=== PATIENT | female | born 1990 | race Caucasian/White ===

== ENCOUNTER 2023-11-13 17:05 | Emergency (ER) | payer OTHER ==
[~2023-11-13] VITALS: Ht 160 cm; Wt 125.0 kg
[~2023-11-13 17:05] MED LIST: LORTAB 5/500 501 TAB PO; MACROBID 1100 MG/CAP; MONONESSA 35 MC1 TA1 PO; NO HOME MEDICATIONS; PRENATAL1 TA2; [UNRECOGNIZED DRUG - OTHER]
[2023-11-13 17:12] VITALS: TEMP 98.4
[2023-11-13] MEDS ORDERED: NORCO 325 MG-51 TAB PO (17:41)
[2023-11-13] MEDS ORDERED: Home HYDROcodone/Acetaminophen 5/325 MG #4 TABS/PACK PO ONE (17:45)
[2023-11-13 18:05] VITALS: BP 120/77; PULSE 80
== END 2023-11-13 18:05 | disposition home or self-care (01) ==
LOC: COL.ER 17:05
DX: L03.114 Cellulitis of left upper limb (principal); T80.89XA Other complications following infusion, transfusion and therapeutic injection, initial encounter

== ENCOUNTER → 2023-11-14 | Outpatient (CLI) | payer OTHER ==
[~2023-11-14] MED LIST changes: +NORCO 325 MG-51 TAB PO
== END ==
LOC: COL.RAD 05:57
DX: I80.8 Phlebitis and thrombophlebitis of other sites (principal); L03.90 Cellulitis, unspecified

== ENCOUNTER 2024-01-16 16:11 | Emergency (ER) | payer OTHER ==
[~2024-01-16] VITALS: Ht 160 cm; Wt 120.5 kg
[2024-01-16 16:17] VITALS: TEMP 97.8
[2024-01-16 16:59] LABS: BASO % 0.5 % (0.0-2.0); EOS # 0.1 K/mm3 (0.0-0.7); EOS % 1.4 % (0.0-4.0); GRAN % 62.5 % (42.2-75.2); HEMATOCRIT 38.8 % (37.0-47.0); HEMOGLOBIN 11.8 g/dl (12.5-16.0); LYMPH # 1.8 K/mm3 (1.2-3.4); LYMPH % 28.4 % (20.0-51.0); MEAN CELL VOLUME 81 fl (80.0-100.0); MEAN CORPUSCULAR HEMOGLOBIN 25 pg (27-31); MEAN CORPUSCULAR HGB CONC 30 g/dl (33.0-37.0); MEAN PLATELET VOLUME 10.7 fl (7.4-10.4); MONO # 0.5 K/mm3 (0.1-0.6); PLATELET COUNT 238 K/mm3 (130-400); RED BLOOD COUNT 4.78 M/mm3 (4.10-5.30); REDCELL DISTRIBUTION WIDTH-CV 15.4 % (11.5-14.5)
[2024-01-16] MEDS ORDERED: Ondansetron 4 MG/2 ML VIAL IV ONE (17:00)
[2024-01-16] MEDS ORDERED: Iohexol 300 - 100 ML VIAL IV ONE (17:01)
[2024-01-16] MEDS ORDERED: NS 100 ML IV SCH (17:01)
[2024-01-16 17:30] LABS: BILIRUBIN,TOTAL 0.2 mg/dL (0.2-1.2); CALCIUM 8.9 mg/dL (8.4-10.2); CREATININE, serum 0.82 mg/dL (0.57-1.11); MAGNESIUM 1.9 mg/dL (1.6-2.6); POTASSIUM 3.6 mEq/L (3.5-4.5); TOTAL PROTEIN 6.8 g/dl (6.2-8.1)
[2024-01-16 19:41] LABS: COLLECTION METHOD CLEAN CATCH
[2024-01-16 19:44] LABS: URINE APPEARANCE CLEAR (CLEAR/HAZY); URINE BLOOD NEGATIVE (NEGATIVE); URINE COLOR YELLOW (YELLOW); URINE GLUCOSE NEGATIVE (NEGATIVE); URINE KETONE NEGATIVE (NEGATIVE); URINE NITRATE NEGATIVE (NEGATIVE); URINE PROTEIN(semi-quant) NEGATIVE (NEGATIVE)
[2024-01-16 21:46] VITALS: BP 132/75; PULSE 78
== END 2024-01-16 21:39 | disposition home or self-care (01) ==
LOC: COL.ER 16:11
PROVIDERS: Emergency Medicine
DX: R20.2 Paresthesia of skin (principal)
CPT/HCPCS: J2405; Q9967